=== PATIENT | female | born 1980 | race Asian ===

== ENCOUNTER 2019-01-26 11:06 | Outpatient (CLI) | payer OTHER ==
[2019-01-26 11:47] LABS: BASOPHILS # (AUTO) 0.1 K/uL (0.0-0.2); EOSINOPHILS # (AUTO) 0.1 K/uL (0.0-0.4); EOSINOPHILS % (AUTO) 2.2 % (0.0-4.0); HEMATOCRIT 41.6 % (36-48); HEMOGLOBIN 13.8 g/dL (12.0-16.0); LYMPHOCYTES # (AUTO) 1.6 K/uL (1.0-5.5); LYMPHOCYTES % (AUTO) 24.7 % (20.5-51.5); MEAN CORPUSCULAR HEMOGLOBIN 31 pg (27-31); MEAN CORPUSCULAR HGB CONC 33 % (32-36); MEAN CORPUSCULAR VOLUME 92 fL (79.0-98.0); MONOCYTES # (AUTO) 0.4 K/uL (0.0-1.0); MONOCYTES % (AUTO) 5.9 % (1.7-9.3); NEUTROPHILS # (AUTO) 4.4 K/uL (1.8-7.7); NEUTROPHILS % (AUTO) 66.2 % (40.0-70.0); PLATELET COUNT (AUTO) 251 K/uL (130-430); RED CELL DISTRIBUTION WIDTH 12.4 % (9.0-15.0); WHITE BLOOD COUNT (AUTO) 6.6 K/uL (4.8-10.8)
[2019-01-26 11:57] LABS: ALBUMIN 3.3 g/dL (3.4-4.8); CALCIUM 8.8 mg/dL (8.4-11.0); CREATININE 0.65 mg/dL (0.55-1.30); POTASSIUM 4.2 mmol/L (3.5-5.1); THYROID STIMULATING HORMONE 0.57 uIu/mL (0.34-4.82); TOTAL BILIRUBIN 0.6 mg/dL (0.0-1.0)
== END 2019-01-26 21:19 | disposition home or self-care (01) ==
LOC: SLB 11:06
PROVIDERS: ATTEND General Practice
DX: Z91.09 Other allergy status, other than to drugs and biological substances (principal)
CPT/HCPCS: 36415; 80053; 80061; 84443-TC; 85025

== ENCOUNTER 2019-04-07 09:29 | Outpatient (CLI) | payer OTHER ==
[2019-04-08 08:49] LABS: ESTRADIOL 44.7 pg/mL (.); FOLLICLE STIMULATION HORMONE 7.6 mIU/mL (.)
== END 2019-04-07 21:02 | disposition home or self-care (01) ==
LOC: SLB 09:29
PROVIDERS: ATTEND Specialist
DX: N92.6 Irregular menstruation, unspecified (principal)
CPT/HCPCS: 36415; 82670; 83001

== ENCOUNTER 2019-04-13 12:31 | Outpatient (CLI) | payer OTHER ==
[2019-04-13] MEDS ORDERED: IOHEXOL 50 ML IV ONE (13:04)
== END 2019-04-13 20:09 | disposition home or self-care (01) ==
LOC: SRD 12:31
PROVIDERS: ATTEND Specialist
DX: N73.6 Female pelvic peritoneal adhesions (postinfective) (principal)
CPT/HCPCS: 74740; C1751; Q9967

== ENCOUNTER 2019-08-15 12:04 | Outpatient (CLI) | payer OTHER ==
[2019-08-15 13:25] LABS: BASOPHILS # (AUTO) 0.1 K/uL (0.0-0.2); BASOPHILS % (AUTO) 0.7 % (0.0-2.0); EOSINOPHILS # (AUTO) 0.1 K/uL (0.0-0.4); EOSINOPHILS % (AUTO) 1.6 % (0.0-4.0); HEMATOCRIT 41.6 % (36-48); HEMOGLOBIN 14.1 g/dL (12.0-16.0); LYMPHOCYTES # (AUTO) 2.1 K/uL (1.0-5.5); MEAN CORPUSCULAR HEMOGLOBIN 31 pg (27-31); MEAN CORPUSCULAR HGB CONC 34 % (32-36); MEAN CORPUSCULAR VOLUME 93 fL (79.0-98.0); MONOCYTES # (AUTO) 0.5 K/uL (0.0-1.0); MONOCYTES % (AUTO) 5.9 % (1.7-9.3); NEUTROPHILS # (AUTO) 5.1 K/uL (1.8-7.7); NEUTROPHILS % (AUTO) 64.8 % (40.0-70.0); PLATELET COUNT (AUTO) 235 K/uL (130-430); RED CELL DISTRIBUTION WIDTH 12.4 % (9.0-15.0); WHITE BLOOD COUNT (AUTO) 7.9 K/uL (4.8-10.8)
[2019-08-15 13:36] LABS: CALCIUM 8.5 mg/dL (8.4-11.0)
[2019-08-15 13:57] LABS: THYROID STIMULATING HORMONE 0.8 uIu/mL (0.36-3.74)
== END 2019-08-15 19:22 | disposition home or self-care (01) ==
LOC: SLB 12:04
PROVIDERS: ATTEND Physician Assistant Medical
DX: E78.5 Hyperlipidemia, unspecified (principal); K59.00 Constipation, unspecified
CPT/HCPCS: 36415; 80061; 82310-TC; 84443-TC; 84450-TC; 84460-TC; 84520-TC; 85025